=== PATIENT | female | born 1985 | race African-American/Black ===

== ENCOUNTER 2018-05-08 18:50 | Inpatient (IN) | payer BC ==
[2018-05-08] MEDS ORDERED: ACETAMINOPHEN 500 MG TAB PO (21:53)
[2018-05-08] MEDS: KETOROLAC 30 MG INJ IV (23:08)
[2018-05-08] MEDS: SOD CHLORIDE 0.9% 1,000 ML IV (23:08)
[2018-05-08] MEDS: CLINDAMYCIN 900 MG/D5W (PMX) 50 ML IVPB (23:22)
[2018-05-08 23:23] LABS: ADD MAN DIFF? NO
[2018-05-08 23:32] LABS: WHITE BLOOD COUNT 8.2 10^3/ul (4.8-10.8)
[2018-05-08 23:32] LABS: ABNORMAL IP MESSAGE 1; BASOPHILS % 0.2 % (0.0-2.0); EOSINOPHILS # 0.2 10^3/ul (0.0-0.5); HEMATOCRIT 34.6 % (37.0-47.0); LYMPHOCYTES # 3.4 10^3/ul (0.8-2.9); LYMPHOCYTES % 41.9 % (15.0-51.0); MEAN CORPUSCULAR HGB CONC 28.9 g/dl (32.0-37.0); MEAN CORPUSCULAR VOLUME 65.9 fl (82.0-101.0); MEAN PLATELET VOLUME 10.7 fl (7.4-10.4); MONOCYTE # 0.7 10^3/ul (0.3-0.9); MONOCYTES % 8.6 % (0.0-11.0); NEUTROPHIL # 3.8 10^3/ul (1.6-7.5); NEUTROPHILS % 47.1 % (39.0-77.0); PLATELET COUNT 364 10^3/UL (140-415); RED BLOOD COUNT 5.25 10^6/ul (4.20-5.40); RED CELL DISTRIBUTION WIDTH 20.8 % (11.5-14.5)
[2018-05-08 23:50] LABS: ALANINE AMINOTRANSFERASE 16 IU/L (13-69); ALBUMIN 4.4 g/dl (3.3-4.9); ALBUMIN/GLOBULIN RATIO 1.15; ALKALINE PHOSPHATASE 63 IU/L (42-121); ANION GAP 13 (8-16); ASPARTATE AMINO TRANSFERASE 19 IU/L (15-46); BILIRUBIN,INDIRECT 0.5 mg/dl (0-1.1); BILIRUBIN,TOTAL 0.5 mg/dl (0.2-1.3); BLOOD UREA NITROGEN 15 mg/dl (7-20); CALCIUM 8.8 mg/dl (8.4-10.2); CARBON DIOXIDE 22 mmol/L (21-31); CHLORIDE 109 mmol/L (97-110); CREATININE 0.86 mg/dl (0.44-1.00); GLUCOSE 85 mg/dl (70-220); POTASSIUM 4.2 mmol/L (3.5-5.1); SODIUM 140 mmol/L (135-144); TOTAL PROTEIN 8.2 g/dl (6.1-8.1)
[2018-05-09] MEDS ORDERED: NACL 0.9% 3 ML SYG IV
[2018-05-09] MEDS ORDERED: DOCUSATE SODIUM 100 MG CAP PO
[2018-05-09] MEDS ORDERED: ONDANSETRON 4 MG TAB PO
[2018-05-09] MEDS ORDERED: ACETAMINOPHEN 325 MG TAB PO
[2018-05-09] MEDS ORDERED: BISACODYL (EC) 5 MG TAB PO
[2018-05-09 00:02] LABS: ADD UMIC YES; UR ASCORBIC ACID NEGATIVE (NEGATIVE); UR BACTERIA FEW /HPF (NONE SEEN); UR BILIRUBIN (Dip) NEGATIVE (NEGATIVE); UR BLOOD (Dip) NEGATIVE (NEGATIVE); UR CLARITY SLIGHTLY CLOUDY (CLEAR); UR COLOR YELLOW (YELLOW); UR GLUCOSE (Dip) NEGATIVE (NEGATIVE); UR KETONES (Dip) TRACE mg/dL (NEGATIVE); UR LEUKOCYTE ESTERASE (Dip) NEGATIVE Leu/ul (NEGATIVE); UR MUCUS MANY /HPF (NONE SEEN); UR NITRITE (Dip) NEGATIVE (NEGATIVE); UR RBC 1 /HPF (0-5); UR SPECIFIC GRAVITY (Dip) 1.039 (1.003-1.030); UR SQUAMOUS EPITHELIAL CELL FEW /HPF (FEW); UR TOTAL PROTEIN (Dip) 1+ mg/dl (NEGATIVE); UR UROBILINOGEN (Dip) 1+ mg/dL (NEGATIVE); UR WBC 1 /HPF (0-5)
[2018-05-09 00:12] LABS: POSITIVE DIFF @See below
[2018-05-09 00:40] LABS: INR 0.92; PARTIAL THROMBOPLASTIN TIME 25.1 Sec (25.0-35.0); PROTIME 12.4 Sec (11.9-14.9)
[2018-05-09] MEDS: HYDROCODONE/APAP (5/325) TAB PO ×3 (04:58→18:10)
[2018-05-09 06:27] LABS: ADD MAN DIFF? NO
[2018-05-09] MEDS ORDERED: PENDING SANTYL ORDER FOR WOUND CARE XX (06:30)
[2018-05-09 06:35] LABS: WHITE BLOOD COUNT 5.3 10^3/ul (4.8-10.8)
[2018-05-09 06:35] LABS: BASOPHILS % 0.4 % (0.0-2.0); EOSINOPHILS # 0.1 10^3/ul (0.0-0.5); EOSINOPHILS % 2.6 % (0.0-7.0); HEMOGLOBIN 9.2 g/dl (12.0-16.0); LYMPHOCYTES # 2.1 10^3/ul (0.8-2.9); LYMPHOCYTES % 39.6 % (15.0-51.0); MEAN CORPUSCULAR HEMOGLOBIN 19.7 pg (29.0-33.0); MEAN CORPUSCULAR HGB CONC 29.7 g/dl (32.0-37.0); MEAN CORPUSCULAR VOLUME 66.2 fl (82.0-101.0); MEAN PLATELET VOLUME 10.3 fl (7.4-10.4); MONOCYTE # 0.6 10^3/ul (0.3-0.9); MONOCYTES % 10.3 % (0.0-11.0); NEUTROPHIL # 2.5 10^3/ul (1.6-7.5); NEUTROPHILS % 46.9 % (39.0-77.0); PLATELET COUNT 307 10^3/UL (140-415); RED BLOOD COUNT 4.68 10^6/ul (4.20-5.40); RED CELL DISTRIBUTION WIDTH 20.4 % (11.5-14.5)
[2018-05-09 06:57] LABS: ALANINE AMINOTRANSFERASE 31 IU/L (13-69); ALBUMIN 3.4 g/dl (3.3-4.9); ALBUMIN/GLOBULIN RATIO 0.97; ALKALINE PHOSPHATASE 53 IU/L (42-121); ANION GAP 13 (8-16); ASPARTATE AMINO TRANSFERASE 14 IU/L (15-46); BILIRUBIN,INDIRECT 0.2 mg/dl (0-1.1); BILIRUBIN,TOTAL 0.2 mg/dl (0.2-1.3); BLOOD UREA NITROGEN 14 mg/dl (7-20); CALCIUM 8.1 mg/dl (8.4-10.2); CARBON DIOXIDE 22 mmol/L (21-31); CHLORIDE 111 mmol/L (97-110); CHOL/HDL RATIO 2.6 RATIO; CHOLESTEROL 122 mg/dl (100-200); CREATININE 0.79 mg/dl (0.44-1.00); GLUCOSE 104 mg/dl (70-220); HDL CHOLESTEROL 46 mg/dl (34-82); LDL CHOLESTEROL,CALCULATED 67 mg/dl; POTASSIUM 4.2 mmol/L (3.5-5.1); SODIUM 142 mmol/L (135-144); TOTAL PROTEIN 6.9 g/dl (6.1-8.1); TRIGLYCERIDES 46 mg/dl (0-149)
[2018-05-09] MEDS ORDERED: PIPER-TAZO 3.375 GM IV (PMX) 100 ML IVPB (07:00)
[2018-05-09 07:05] LABS: IRON 14 ug/dl (35-150)
[2018-05-09 07:15] LABS: % IRON SATURATION 4 % SAT (22-52); TOTAL IRON BINDING CAPACITY 347 ug/dl (241-421)
[2018-05-09 07:18] LABS: HEMOGLOBIN A1C 5.3 % (0-5.9)
[2018-05-09] MEDS: LEVOFLOXACIN 750MG/D5W (PMX) 150 ML IVPB (09:00)
[2018-05-09] MEDS: CLINDAMYCIN 600 MG/D5W (PMX) 50 ML IVPB ×2 (09:49→17:08)
[2018-05-09 20:27] LABS: AMPHETAMINE/METHAMPHETAMINE NEGATIVE (NEGATIVE); BARBITURATES NEGATIVE (NEGATIVE); BENZODIAZEPINES NEGATIVE (NEGATIVE); CANNABINOIDS NEGATIVE (NEGATIVE); COCAINE NEGATIVE (NEGATIVE); OPIATES POSITIVE (NEGATIVE)
[2018-05-09] MEDS: SODIUM HYPOCHLORITE (1/40) 1 APPLIC BTL IRR (21:00)
[2018-05-10] MEDS: CLINDAMYCIN 600 MG/D5W (PMX) 50 ML IVPB ×3 (01:00→11:25)
[2018-05-10] MEDS: HYDROCODONE/APAP (5/325) TAB PO (01:08)
[2018-05-10] MEDS: LEVOFLOXACIN 750MG/D5W (PMX) 150 ML IVPB (08:17)
[2018-05-10] MEDS: SODIUM HYPOCHLORITE (1/40) 1 APPLIC BTL IRR (08:20)
[2018-05-10] MEDS: ENOXAPARIN 40 MG/0.4 ML SYG SC (08:21)
[2018-05-10 11:21] LABS: ADD MAN DIFF? NO
[2018-05-10 11:31] LABS: WHITE BLOOD COUNT 4.4 10^3/ul (4.8-10.8)
[2018-05-10 11:31] LABS: BASOPHILS % 0.2 % (0.0-2.0); EOSINOPHILS # 0.1 10^3/ul (0.0-0.5); EOSINOPHILS % 1.8 % (0.0-7.0); HEMATOCRIT 34.7 % (37.0-47.0); HEMOGLOBIN 10.2 g/dl (12.0-16.0); LYMPHOCYTES # 1.4 10^3/ul (0.8-2.9); LYMPHOCYTES % 31.6 % (15.0-51.0); MEAN CORPUSCULAR HEMOGLOBIN 19.4 pg (29.0-33.0); MEAN CORPUSCULAR HGB CONC 29.4 g/dl (32.0-37.0); MEAN PLATELET VOLUME 9.9 fl (7.4-10.4); MONOCYTE # 0.5 10^3/ul (0.3-0.9); MONOCYTES % 10.7 % (0.0-11.0); NEUTROPHIL # 2.4 10^3/ul (1.6-7.5); NEUTROPHILS % 55.5 % (39.0-77.0); PLATELET COUNT 323 10^3/UL (140-415); RED BLOOD COUNT 5.26 10^6/ul (4.20-5.40); RED CELL DISTRIBUTION WIDTH 20.9 % (11.5-14.5)
[2018-05-10 12:05] LABS: ANION GAP 10 (8-16); BLOOD UREA NITROGEN 10 mg/dl (7-20); CALCIUM 8.7 mg/dl (8.4-10.2); CARBON DIOXIDE 24 mmol/L (21-31); CHLORIDE 110 mmol/L (97-110); CREATININE 0.67 mg/dl (0.44-1.00); GLUCOSE 88 mg/dl (70-220); SODIUM 139 mmol/L (135-144)
[2018-05-10 12:58] LABS: MAGNESIUM 1.9 mg/dl (1.7-2.5)
[2018-05-10 12:58] LABS: PHOSPHORUS 4.2 mg/dl (2.5-4.9)
[2018-05-10 13:05] LABS: C-REACTIVE PROTEIN < 0.5 mg/dl (0.0-0.9)
[2018-05-10 13:35] LABS: ERYTHROCYTE SEDIMENTATION RATE 17 mm/Hr (0-20)
[2018-05-10] MEDS ORDERED: SOD FERRIC GLUC COMPLX 125 MG in SOD CHLORIDE 0.9% 100 ML IVPB (17:00)
== END 2018-05-10 15:45 | disposition left against medical advice (07) | DRG 914 ==
LOC: MS3 23:22 → FTE 18:50
DX: S97.121A Crushing injury of right lesser toe(s), initial encounter (principal); I96 Gangrene, not elsewhere classified; Z68.41 Body mass index [BMI] 40.0-44.9, adult; L03.031 Cellulitis of right toe; E66.01 Morbid (severe) obesity due to excess calories; D50.9 Iron deficiency anemia, unspecified; F41.9 Anxiety disorder, unspecified; W22.8XXA Striking against or struck by other objects, initial encounter
CPT/HCPCS: 71045; 73630; 73660; 80048; 80053; 80061; 80307; 81001; 81025; 82728; 83036; 83540; 83735; 84100; 84443; 85025; 85610; 85651; 85730; 86140; 86850; 86900; 86901; 87040; 93005; 96374; 96375; 99285-25

== ENCOUNTER 2018-05-12 16:12 | Inpatient (IN) | payer BC ==
[2018-05-12] MEDS ORDERED: ONDANSETRON 4 MG INJ IV ×2 (17:30→19:00)
[2018-05-12] MEDS ORDERED: ACETAMINOPHEN 325 MG TAB PO ×2 (17:30→19:00)
[2018-05-12] MEDS ORDERED: NACL 0.9% 3 ML SYG IV (19:00)
[2018-05-12] MEDS ORDERED: VANCOMYCIN IV PER PHARMACY XX (19:00)
[2018-05-12] MEDS: LEVOFLOXACIN 750MG/D5W (PMX) 150 ML IVPB (20:35)
[2018-05-12] MEDS: FERROUS FUMARATE (SR) TAB PO (20:49)
[2018-05-12] MEDS: SODIUM HYPOCHLORITE (1/40) 1 APPLIC BTL IRR (20:50)
[2018-05-12 21:24] LABS: BLOOD UREA NITROGEN 18 mg/dl (7-20)
[2018-05-12 21:24] LABS: CREATININE 0.79 mg/dl (0.44-1.00)
[2018-05-12] MEDS: VANCOMYCIN 2 GM in SOD CHLORIDE 0.9% 500 ML IVPB (23:01)
[2018-05-12] MEDS: HYDROCODONE/APAP (5/325) TAB PO (23:02)
[2018-05-13] MEDS: VANCOMYCIN 1.5 GM in SOD CHLORIDE 0.9% 250 ML IVPB ×3 (04:10→21:06)
[2018-05-13] MEDS: HYDROCODONE/APAP (5/325) TAB PO ×3 (04:44→21:06)
[2018-05-13 05:34] LABS: ADD MAN DIFF? NO
[2018-05-13 05:38] LABS: BASOPHILS % 0.5 % (0.0-2.0); EOSINOPHILS # 0.1 10^3/ul (0.0-0.5); EOSINOPHILS % 1.9 % (0.0-7.0); HEMATOCRIT 32.7 % (37.0-47.0); HEMOGLOBIN 9.7 g/dl (12.0-16.0); LYMPHOCYTES # 2.3 10^3/ul (0.8-2.9); LYMPHOCYTES % 40.2 % (15.0-51.0); MEAN CORPUSCULAR HEMOGLOBIN 19.2 pg (29.0-33.0); MEAN CORPUSCULAR HGB CONC 29.7 g/dl (32.0-37.0); MEAN CORPUSCULAR VOLUME 64.8 fl (82.0-101.0); MEAN PLATELET VOLUME 10.8 fl (7.4-10.4); MONOCYTE # 0.6 10^3/ul (0.3-0.9); MONOCYTES % 10.3 % (0.0-11.0); NEUTROPHIL # 2.7 10^3/ul (1.6-7.5); NEUTROPHILS % 46.8 % (39.0-77.0); PLATELET COUNT 345 10^3/UL (140-415); RED BLOOD COUNT 5.05 10^6/ul (4.20-5.40); RED CELL DISTRIBUTION WIDTH 20.8 % (11.5-14.5)
[2018-05-13 05:38] LABS: WHITE BLOOD COUNT 5.8 10^3/ul (4.8-10.8)
[2018-05-13 05:55] LABS: MAGNESIUM 1.9 mg/dl (1.7-2.5)
[2018-05-13 05:55] LABS: PHOSPHORUS 4.3 mg/dl (2.5-4.9)
[2018-05-13 05:59] LABS: INR 0.91; PROTIME 12.3 Sec (11.9-14.9)
[2018-05-13 06:00] LABS: PARTIAL THROMBOPLASTIN TIME 25.8 Sec (25.0-35.0)
[2018-05-13 06:06] LABS: ALANINE AMINOTRANSFERASE 23 IU/L (13-69); ALBUMIN 3.5 g/dl (3.3-4.9); ALBUMIN/GLOBULIN RATIO 1.02; ALKALINE PHOSPHATASE 46 IU/L (42-121); ANION GAP 12 (8-16); ASPARTATE AMINO TRANSFERASE 13 IU/L (15-46); BILIRUBIN,INDIRECT 0.2 mg/dl (0-1.1); BILIRUBIN,TOTAL 0.2 mg/dl (0.2-1.3); BLOOD UREA NITROGEN 13 mg/dl (7-20); CALCIUM 8.4 mg/dl (8.4-10.2); CARBON DIOXIDE 20 mmol/L (21-31); CHLORIDE 112 mmol/L (97-110); CREATININE 0.76 mg/dl (0.44-1.00); GLUCOSE 88 mg/dl (70-220); POTASSIUM 3.9 mmol/L (3.5-5.1); SODIUM 140 mmol/L (135-144); TOTAL PROTEIN 6.9 g/dl (6.1-8.1)
[2018-05-13] MEDS: ENOXAPARIN 40 MG/0.4 ML SYG SC (09:44)
[2018-05-13] MEDS: SODIUM HYPOCHLORITE (1/40) 1 APPLIC BTL IRR ×2 (09:44→21:07)
[2018-05-13] MEDS: FERROUS FUMARATE (SR) TAB PO ×2 (12:40→21:08)
[2018-05-13 19:50] LABS: VANCOMYCIN,TROUGH 14.4 ug/ml (10.0-20.0)
[2018-05-13] MEDS: LEVOFLOXACIN 750MG/D5W (PMX) 150 ML IVPB (19:51)
[2018-05-13] MEDS ORDERED: LIDOCAINE 1% (MPF) 30 ML INJ INJ (22:30)
[2018-05-13] MEDS: HYDROmorphONE 0.5 MG/0.5 ML SYG IM (23:19)
[2018-05-14] MEDS: VANCOMYCIN 1.5 GM in SOD CHLORIDE 0.9% 250 ML IVPB (05:43)
[2018-05-14] MEDS: FERROUS FUMARATE (SR) TAB PO (08:46)
[2018-05-14] MEDS: ENOXAPARIN 40 MG/0.4 ML SYG SC (08:48)
[2018-05-14] MEDS: HYDROCODONE/APAP (5/325) TAB PO (08:51)
[2018-05-14] MEDS: SODIUM HYPOCHLORITE (1/40) 1 APPLIC BTL IRR (09:00)
[2018-05-14] MEDS ORDERED: VANCOMYCIN 1.5 GM in SOD CHLORIDE 0.9% 250 ML IVPB (16:00)
== END 2018-05-14 13:55 | disposition home or self-care (01) | DRG 902 ==
LOC: MS1 05-14 06:25 → E/R 16:12 → MS3 17:03
PROVIDERS: Internal Medicine
PROC: 0JBQ0ZZ Excision of Right Foot Subcutaneous Tissue and Fascia, Open Approach (ICD-10-PCS; principal; 2018-05-13)
DX: S97.121A Crushing injury of right lesser toe(s), initial encounter (principal); I96 Gangrene, not elsewhere classified; Z68.41 Body mass index [BMI] 40.0-44.9, adult; L97.519 Non-pressure chronic ulcer of other part of right foot with unspecified severity; E66.01 Morbid (severe) obesity due to excess calories; W22.8XXA Striking against or struck by other objects, initial encounter; Y93.89 Activity, other specified; Y92.89 Other specified places as the place of occurrence of the external cause; Y99.8 Other external cause status; Z71.3 Dietary counseling and surveillance; D50.9 Iron deficiency anemia, unspecified
CPT/HCPCS: 80053; 80202; 82565; 83735; 84100; 84520; 85025; 85610; 85730; 99285-25

== ENCOUNTER 2019-03-11 17:26 | Emergency (ER) | payer BC ==
[2019-03-11] MEDS ORDERED: IOHEXOL 14.3 MG(I)/ML (ADULT) BTL PO (18:30)
[2019-03-11 18:57] LABS: ADD MAN DIFF? NO
[2019-03-11 18:58] LABS: ADD UMIC YES; UR ASCORBIC ACID NEGATIVE (NEGATIVE); UR BACTERIA FEW /HPF (NONE SEEN); UR BILIRUBIN (Dip) NEGATIVE (NEGATIVE); UR BLOOD (Dip) 1+ mg/dL (NEGATIVE); UR CLARITY SLIGHTLY CLOUDY (CLEAR); UR COLOR YELLOW (YELLOW); UR GLUCOSE (Dip) NEGATIVE (NEGATIVE); UR KETONES (Dip) TRACE mg/dL (NEGATIVE); UR LEUKOCYTE ESTERASE (Dip) NEGATIVE Leu/ul (NEGATIVE); UR NITRITE (Dip) NEGATIVE (NEGATIVE); UR RBC 0 /HPF (0-5); UR SPECIFIC GRAVITY (Dip) 1.021 (1.003-1.030); UR TOTAL PROTEIN (Dip) NEGATIVE (NEGATIVE); UR UROBILINOGEN (Dip) NEGATIVE (NEGATIVE); UR WBC 4 /HPF (0-5)
[2019-03-11] MEDS: KETOROLAC 30 MG INJ IM (18:59)
[2019-03-11 19:03] LABS: WHITE BLOOD COUNT 6.7 10^3/ul (4.8-10.8)
[2019-03-11 19:03] LABS: ABNORMAL IP MESSAGE 1; BASOPHILS % 0.4 % (0.0-2.0); EOSINOPHILS # 0.2 10^3/ul (0.0-0.5); EOSINOPHILS % 2.7 % (0.0-7.0); HEMATOCRIT 34.5 % (37.0-47.0); LYMPHOCYTES # 2.3 10^3/ul (0.8-2.9); LYMPHOCYTES % 33.9 % (15.0-51.0); MEAN CORPUSCULAR HEMOGLOBIN 18.9 pg (29.0-33.0); MEAN CORPUSCULAR VOLUME 65.2 fl (82.0-101.0); MONOCYTE # 0.6 10^3/ul (0.3-0.9); MONOCYTES % 8.3 % (0.0-11.0); NEUTROPHIL # 3.7 10^3/ul (1.6-7.5); NEUTROPHILS % 54.4 % (39.0-77.0); PLATELET COUNT 311 10^3/UL (140-415); RED BLOOD COUNT 5.29 10^6/ul (4.20-5.40); RED CELL DISTRIBUTION WIDTH 19.7 % (11.5-14.5)
[2019-03-11 19:06] LABS: POSITIVE DIFF @See below
[2019-03-11 19:17] LABS: ALANINE AMINOTRANSFERASE 14 IU/L (13-69); ALBUMIN 4.3 g/dl (3.3-4.9); ALBUMIN/GLOBULIN RATIO 1.04; ALKALINE PHOSPHATASE 56 IU/L (42-121); ANION GAP 9 (5-13); ASPARTATE AMINO TRANSFERASE 18 IU/L (15-46); BILIRUBIN,INDIRECT 0.1 mg/dl (0-1.1); BILIRUBIN,TOTAL 0.1 mg/dl (0.2-1.3); BLOOD UREA NITROGEN 14 mg/dl (7-20); CALCIUM 8.8 mg/dl (8.4-10.2); CARBON DIOXIDE 27 mmol/L (21-31); CHLORIDE 105 mmol/L (97-110); CREATININE 0.78 mg/dl (0.44-1.00); Estimated GFR > 60 mL/min (>60); GLUCOSE 73 mg/dl (70-220); POTASSIUM 4.2 mmol/L (3.5-5.1); SODIUM 141 mmol/L (135-144); TOTAL PROTEIN 8.4 g/dl (6.1-8.1)
[2019-03-11 19:19] LABS: INR 0.88; PARTIAL THROMBOPLASTIN TIME 25.2 Sec (23.0-35.0); PT RATIO 0.9
[2019-03-11] MEDS: SOD CHLORIDE 0.9% 100 ML (19:20)
[2019-03-11] MEDS: IOHEXOL 300MG/ML 150 ML BTL (19:20)
== END 2019-03-11 22:27 | disposition home or self-care (01) ==
LOC: FTE 17:26
DX: L90.5 Scar conditions and fibrosis of skin (principal); I10 Essential (primary) hypertension; Z91.040 Latex allergy status
CPT/HCPCS: 36415; 74177; 80053; 81001; 81025; 85025; 85610; 85730; 96372; 99285-25

== ENCOUNTER 2019-06-07 12:39 | Emergency (ER) | payer BC ==
[2019-06-07] MEDS: DIPHENHYDRAMINE 25 MG CAP PO (13:00)
[2019-06-07] MEDS: FAMOTIDINE 20 MG TAB PO (13:00)
[2019-06-07] MEDS: MINERAL OIL 240 ML LOT TOP (13:14)
== END 2019-06-07 14:01 | disposition home or self-care (01) ==
LOC: E/R 12:39
DX: L29.9 Pruritus, unspecified (principal); Q80.9 Congenital ichthyosis, unspecified; I10 Essential (primary) hypertension
CPT/HCPCS: 99282